=== PATIENT | female | born 1985 | race Caucasian/White ===

== ENCOUNTER 2016-12-08 08:55 | Day surgery (SDC) | payer OTHER ==
[2016-11-23 08:25] VITALS: BMI 58.1
[2016-12-08] MEDS ORDERED: INDOCYANINE GREEN 25 MG/10 ML VIAL IVPUSH ONE (10:10)
[2016-12-08] MEDS ORDERED: BUPIVACAINE HCL/PF 0.5% (5MG/ML) 10 ML VIAL ONE (11:13)
--- NOTE | 2016-12-08 11:16 | HP ---
History & Physical Update - History History: No Change - Physical Physical: No Change - Assessment Assessment: No Change - Plan Plan: No Change (Medical clearance in chart)
[2016-12-08] MEDS ORDERED: HEPARIN NA (PORCINE) 5,000 UNITS/ML 1ML VIAL SQ ONE (11:18)
[2016-12-08] MEDS ORDERED: CLINDAMYCIN PHOSPHATE 600 MG/4 ML VIAL ONE (11:28)
[2016-12-08] MEDS ORDERED: ROCURONIUM BROMIDE 50 MG/5 ML VIAL ONE ×2 (11:28→12:41)
[2016-12-08] MEDS ORDERED: PROPOFOL 20 ML ONE (11:28)
[2016-12-08] MEDS ORDERED: DEXAMETHASONE SOD PHOSPHATE 4 MG/1 ML VIAL ONE (11:28)
[2016-12-08] MEDS ORDERED: MIDAZOLAM HCL 2 MG/2 ML SINGLE DOSE VIAL ONE ×2 (11:29)
[2016-12-08] MEDS ORDERED: HEPARIN NA (PORCINE) 5,000 UNITS/ML 1ML VIAL ONE (11:55)
[2016-12-08] MEDS ORDERED: CLINDAMYCIN PHOSPHATE 900 MG/6 ML VIAL IVPB ONE (11:57)
[2016-12-08] MEDS ORDERED: BUPIVACAINE HCL/PF 0.5% (5MG/ML) 10 ML VIAL IJ ONE ×2 (12:19)
[2016-12-08] MEDS ORDERED: HYDROmorphone HCL CARPU-JECT 1 MG/1 ML DISP.SYRIN IVPUSH PRN (13:44)
[2016-12-08] MEDS ORDERED: ONDANSETRON 4 MG/2 ML VIAL IVPUSH PRN (13:44)
[2016-12-08] MEDS ORDERED: LACTATED RINGERS SOLUTION 1,000 ML IV SCH (13:45)
[2016-12-08] MEDS ORDERED: ACETAMINOPHEN 1000 MG/100 ML VIAL (NON FORMULARY) IVPB PRN (13:46)
[2016-12-08] MEDS ORDERED: GLYCOPYRROLATE 0.2 MG/1 ML VIAL ONE (13:57)
[2016-12-08] MEDS ORDERED: NEOSTIGMINE METHYLSULFATE 0.5 MG/ML - 10 ML MDV ONE (13:57)
[2016-12-08] MEDS ORDERED: ACETAMINOPHEN INJECTION 100 ML IVPB ONE (14:43)
[2016-12-08] MEDS ORDERED: oxyCODONE HCL 5 MG TABLET PO PRN ×2 (14:45→14:46)
--- NOTE | 2016-12-08 15:03 | OP ---
Operative Note - Note: Operative Date: 12/08/16 Pre-Operative Diagnosis: Chronic cholecystitis with cholelithiasis Operation: Robotic cholecystectomy, LRONA Findings: Contracted GB with large stone and dense omental adhesions to the GB Post-Operative Diagnosis: Other (omental adhesions) Surgeon: Reid Coe Day Guard: Kat Moreno Anesthesia: General Specimens Removed: gallbladder Estimated Blood Loss (mls): 15 Operative Report Dictated: Yes
[2016-12-08] MEDS ORDERED: ONDANSETRON 4 MG/2 ML VIAL ONE (15:23)
[2016-12-08 15:27] VITALS: TEMP 97.8
[2016-12-08 17:29] VITALS: BP 129/78; PULSE 70
--- NOTE | 2016-12-08 21:47 | OP ---
DATE OF OPERATION: 12/08/2016 PROCEDURE: Robotic-assisted laparoscopic cholecystectomy and lysis of adhesions. PREOPERATIVE DIAGNOSIS: Chronic cholecystitis with cholelithiasis. POSTOPERATIVE DIAGNOSIS: Chronic cholecystitis with cholelithiasis and intraabdominal adhesions. SURGEON: Reid Coe MD LABORATORY TESTER: MARJ Baumann ANESTHESIA: General endotracheal. FINDINGS AND PROCEDURE: This is a 31-year-old female who presents with acute onset of right upper quadrant pain radiating to back more than 2 months prior and was found to have an episode of acute cholecystitis, which was treated with antibiotics and bowel rest that resolved spontaneously. An ultrasound at the time revealed a gallbladder with large stone and a normal size common duct, so patient was advised interval cholecystectomy to prevent recurrence of symptoms and complications of gallstone disease. Consent was obtained after discussing the risks, benefits and alternatives to the procedure. Patient was brought to the operating room and placed in supine position. General endotracheal anesthesia was administered. The abdomen was prepped and draped in the usual sterile fashion. Using 0.5% Marcaine, local anesthesia was administered to the proposed incision site. The peritoneal cavity was initially entered using the Veress needle technique but proved to be unsuccessful. After attempting it also at the left subcostal margin, the access was converted to Fredi technique, where a 2 cm umbilical incision was made and dissection of the fascia until the peritoneal cavity was entered. Pneumoperitoneum was established. The robotic port was inserted and clamped 2 towel clips to prevent gas leakage. At this point, the patient was placed in reverse Trendelenburg left-side down position. Two 8-mm ports were inserted to the right of the umbilicus in the same level, 8 mm away from each other. Another 8-mm port was inserted in left upper quadrant, 8 mm away from the umbilicus and 1 fingerbreadth above. The 30-degree 3D laparoscope was inserted. Using the 3D laparoscope, the target organ was set and the robotic arms were docked. The ProGrasp forceps was inserted in the right lateralmost port. The fenestrated bipolar forceps was inserted in midclavicular port and an EndoWrist hook dissector connected to monopolar cautery was inserted at the left upper quadrant port. The patient was noted to have dense omental adhesions to the gallbladder from the previous acute attack of cholecystitis. The fundus was initially grasped and retracted superiorly with some difficulty due to the intrahepatic location of the gallbladder, owing to a very large liver. The omental adhesions were then taken down using the EndoWrist hook dissector connected to monopolar cautery. The gallbladder was noted to be very contacted and fibrotic. The dissection was carried initially at the proximal gallbladder bed on each side of the gallbladder to establish the critical view of safety. The cystic duct was identified and was noted to be mildly dilated. This was isolated to about a length of 3 cm. The cystic artery was also identified and dissected and skeletonized about 3 cm length. Using the Firefly technology, the hepatobiliary tree was identified with the cystic duct visualized entering into the gallbladder. The common duct was also visualized medial to the quite long cystic duct. After it was ascertained that the anatomy was clear, the cystic duct and cystic artery were clipped with Hem-o-amy clips, leaving 2 Hem-o-amy clips at the cystic duct and cystic artery stumps. The gallbladder was then resected from its bed in antegrade fashion using the EndoWrist hook dissector connected to Bovie. The bleeding of the gallbladder bed as well as the Morison's pouch was irrigated with sterile normal saline until the return was clear. The gallbladder was placed in an Endobag via the umbilical port and extracted after enlarging the skin due to the large 2-cm stone. The instruments were removed. The robotic arms were undocked. The pneumoperitoneum was evacuated and the ports were removed. The wounds were closed with [id number] Vicryl 0 suture for the umbilical incision and subcuticular Biosyn 4-0 suture for the skin. The wound closure was reinforced with Dermabond. The patient was successfully extubated and transferred to the post-anesthesia care unit in satisfactory condition. Estimated blood loss was about 15 mL. Wound class clean-contaminated. The patient received 900 mg of clindamycin prior to the start of the procedure. Mahsa [id number] MTDD
--- NOTE | 2016-12-09 12:23 | SURG ---
Surgery Slate Handler Note Slate Handler: Kat Moreno PA-C Date of Service: 12/08/16 Diagnosis: Chronic cholecystitis with cholelithiasis Procedure: Pre-Operative Diagnosis: Operation: Robotic cholecystectomy, LORNA White was present for the entirety of the operative procedure. For further detail, please refer to operative report. Visit type - Case Type Case Type: Scheduled Admission - Emergency Emergency Visit: No - New patient This patient is new to me today: No - Critical Care Critical Care patient: No
--- NOTE | 2016-12-10 17:39 | PATH ---
Surgical Pathology Report Patient Name: HAIR LYNCH [facility]. Rec. #: [id number] /Age/Gender: 1985 (Age: 31) / F Account: [id number] Location: [facility] SURGICAL Taken: 12/08/2016 Received: 12/09/2016 Reported: 12/10/2016 Physicians: Reid Coe M.D. Specimen(s) Received GALLBLADDER Clinical History Chronic cholecystitis Final Diagnosis GALLBLADDER, CHOLECYSTECTOMY: CHRONIC CHOLECYSTITIS WITH XANTHOGRANULOMATOUS FEATURES AND CHOLELITHIASIS. Electronically Signed Bartolo Flannery M.D. Gross Description Received in formalin, labeled "gallbladder" is a 4.2 x 2.0 x 2.0 cm. gallbladder with a 0.2 cm in length portion of cystic duct attached. The outer surface is martins-colbert and varies from smooth to shaggy. The lumen contains a 2.7 cm in greatest dimension black, ovoid cholelith. There is no bile present within the lumen. The mucosa is eroded. The wall of the gallbladder ranges from 0.1-0.4 cm in thickness. Medical Appointment Scheduler sections are submitted in one cassette. 12/09/201612/09/2016
== END 2016-12-08 16:10 | disposition home or self-care (01) ==
LOC: JASU-SURG 08:55
PROVIDERS: ATTEND Surgery
PROC: 8E0W4CZ Robotic Assisted Procedure of Trunk Region, Percutaneous Endoscopic Approach (ICD-10-PCS; 2016-12-08)
PROC: 0FT44ZZ Resection of Gallbladder, Percutaneous Endoscopic Approach (ICD-10-PCS; principal; 2016-12-08 11:00)
DX: K80.10 Calculus of gallbladder with chronic cholecystitis without obstruction (principal)
CPT/HCPCS: 47562; S2900; 84703; 88304-TC; 94760; J1644

== ENCOUNTER 2021-01-29 18:44 | Emergency (ER) | payer OTHER ==
[2021-01-29 19:04] VITALS: BMI 68.2
[2021-01-29] MEDS ORDERED: SODIUM CHLORIDE 1,000 ML IV STA (20:08)
[2021-01-29] MEDS ORDERED: LORazepam 2 MG/ML SDV VIAL IVPUSH ONE (20:13)
[2021-01-29] MEDS ORDERED: ACETAMINOPHEN 1000 MG/100 ML VIAL (NON FORMULARY) IVPB ONE (20:18)
[2021-01-29] MEDS ORDERED: LORazepam 2 MG/ML SDV VIAL ONE (21:02)
[2021-01-29] MEDS ORDERED: ACETAMINOPHEN INJECTION 100 ML IVPB ONE (21:02)
[2021-01-29 21:47] LABS: BASO % 0.4 % (0-2.0); EOS % 0.4 % (0-4.5); HEMATOCRIT 38.5 % (32.4-45.2); HEMOGLOBIN 12.8 GM/dL (10.7-15.3); LYMPH % 10.9 % (8-40); MCH 27.7 pg (25.7-33.7); MCHC 33.3 g/dl (32.0-36.0); MEAN CELL VOLUME 83.2 fl (80-96); MEAN PLT VOLUME 8.3 fl (7.5-11.1); MONO % 5.8 % (3.8-10.2); NEUT % 82.5 % (42.8-82.8); PLATELET COUNT 350 K/MM3 (134-434); RBC 4.63 M/mm3 (3.60-5.2); RDW 15.2 % (11.6-15.6); WHITE BLOOD COUNT 10.8 K/mm3 (4.0-10.0)
[2021-01-29 22:05] VITALS: BP 98/58; PULSE 85; TEMP 98
[2021-01-29 22:05] LABS: POTASSIUM 4.3 mmol/L (3.5-5.1)
[2021-01-29 22:08] LABS: ALBUMIN 3.5 g/dl (3.4-5.0); CALCIUM 9.3 mg/dL (8.5-10.1)
[2021-01-29 22:11] LABS: CREATININE 0.8 mg/dL (0.55-1.3)
[2021-01-29 22:13] LABS: BILIRUBIN,TOTAL 1.2 mg/dL (0.2-1); TOT PROT 7.6 g/dl (6.4-8.2)
[2021-01-29 23:44] LABS: HCG,QUALITATIVE URINE Negative
[2021-01-29 23:46] LABS: EPI CELLS >36 /uL (0-25.1); HYALINE CASTS 1 /uL (0-3.1); URINE APPEARANCE CLOUDY; URINE BACTERIA 142 /uL (0-1359); URINE BILIRUBIN NEGATIVE (NEGATIVE); URINE COLOR YELLOW; URINE GLUCOSE (UA) NEGATIVE (NEGATIVE); URINE KETONE TRACE (NEGATIVE); URINE LEUK ESTERASE 1+ (NEGATIVE); URINE NITRITE NEGATIVE (NEGATIVE); URINE PROTEIN 1+ (NEGATIVE); URINE RBC 2998 /uL (0-23.9); URINE UROBILINOGEN 0.2 mg/dL (0.2-1.0); URINE WBC 61 /uL (0-25.8)
== END 2021-01-30 00:47 | disposition home or self-care (01) ==
LOC: JER 18:44
PROC: 3E033NZ Introduction of Analgesics, Hypnotics, Sedatives into Peripheral Vein, Percutaneous Approach (ICD-10-PCS; principal; 2021-01-29)
PROC: 3E033GC Introduction of Other Therapeutic Substance into Peripheral Vein, Percutaneous Approach (ICD-10-PCS; 2021-01-29)
PROC: 3E0337Z Introduction of Electrolytic and Water Balance Substance into Peripheral Vein, Percutaneous Approach (ICD-10-PCS; 2021-01-29)
DX: R56.9 Unspecified convulsions (principal); N39.0 Urinary tract infection, site not specified
CPT/HCPCS: 36415; 71045-TC-FY; 80053; 80177; 81003; 82550; 84703; 85025; 93005; 93010; 99285-25; J0131

== ENCOUNTER 2021-11-12 15:12 | Inpatient (IN) | payer OTHER ==
[2021-11-12 15:57] VITALS: BMI 61.4
[2021-11-12] MEDS ORDERED: levETIRAcetam 500 MG TABLET (FP) PO ONE ×2 (16:47→17:01)
[2021-11-12 19:58] LABS: HCG,QUALITATIVE URINE Negative
[2021-11-12 20:14] LABS: BASO % 0.5 % (0-2.0); EOS % 0.3 % (0-4.5); HEMATOCRIT 34.4 % (32.4-45.2); HEMOGLOBIN 11.4 GM/dL (10.7-15.3); LYMPH % 20.1 % (8-40); MCH 27.1 pg (25.7-33.7); MCHC 33.3 g/dl (32.0-36.0); MEAN CELL VOLUME 81.2 fl (80-96); MONO % 4.9 % (3.8-10.2); NEUT % 74.2 % (42.8-82.8); PLATELET COUNT 341 10^3/uL (134-434); RBC 4.23 M/mm3 (3.60-5.2); WHITE BLOOD COUNT 12.2 K/mm3 (4.0-10.0)
[2021-11-12 20:33] LABS: CALCIUM 8.5 mg/dL (8.5-10.1)
[2021-11-12 20:34] LABS: BLOOD UREA NITROGEN 10.5 mg/dL (7-18)
[2021-11-12 20:37] LABS: CREATININE 0.9 mg/dL (0.55-1.3)
[2021-11-12 20:39] LABS: BILIRUBIN,TOTAL 0.6 mg/dL (0.2-1); TOT PROT 6.4 g/dl (6.4-8.2)
[2021-11-12 22:58] LABS: EPI CELLS 33 /uL (0-25.1); HYALINE CASTS 4 /uL (0-3.1); PH,URINE 6.5 (5.0-8.0); URINE APPEARANCE CLOUDY; URINE BACTERIA 4474 /uL (0-1359); URINE BILIRUBIN NEGATIVE (NEGATIVE); URINE COLOR YELLOW; URINE GLUCOSE (UA) NEGATIVE (NEGATIVE); URINE KETONE TRACE (NEGATIVE); URINE LEUK ESTERASE 2+ (NEGATIVE); URINE NITRITE NEGATIVE (NEGATIVE); URINE PROTEIN NEGATIVE (NEGATIVE); URINE RBC 17 /uL (0-23.9); URINE WBC 188 /uL (0-25.8)
[2021-11-13] MEDS ORDERED: ENOXAPARIN NA (PORCINE) 40 MG/0.4 ML DISP.SYRIN SQ ONE ×2 (00:17→09:48)
[2021-11-13] MEDS: ENOXAPARIN NA (PORCINE) 40 MG/0.4 ML DISP.SYRIN SQ SCH ×2 (00:25→09:59)
[2021-11-13 08:40] VITALS: BP 128/85; PULSE 109; TEMP 99.2
[2021-11-13] MEDS ORDERED: levETIRAcetam 500 MG TABLET (FP) PO ONE (09:48)
[2021-11-13] MEDS ORDERED: PANTOPRAZOLE 40 MG TABLET ONE (09:48)
[2021-11-13] MEDS ORDERED: AZTREONAM 0.5 GM in DEXTROSE 5%-WATER - 50 ML IVPB SCH (10:00)
[2021-11-13] MEDS ORDERED: AZTREONAM 1 GM VIAL (RESTRICTED TO ID) IVPB SCH (10:00)
[2021-11-13] MEDS ORDERED: PANTOPRAZOLE 40 MG TABLET PO SCH (10:00)
[2021-11-13] MEDS ORDERED: levETIRAcetam 500 MG TABLET (FP) PO SCH (10:00)
[2021-11-13] MEDS ORDERED: LURASIDONE HCL 20 MG TABLET PO SCH (10:00)
[2021-11-13] MEDS ORDERED: NICOTINE 14 MG/24 HOURS TOPICAL PATCH TD SCH (10:00)
[2021-11-13] MEDS ORDERED: LURASIDONE HCL 40 MG TABLET PO SCH (22:00)
[2021-11-14] MEDS ORDERED: AZTREONAM 0.5 GM in DEXTROSE 5%-WATER - 50 ML IVPB SCH (10:00)
== END 2021-11-13 17:00 | disposition left against medical advice (07) | DRG 101 ==
LOC: JER 15:12 → JERBED 18:29
PROVIDERS: ADMIT Internal Medicine
DX: G40.909 Epilepsy, unspecified, not intractable, without status epilepticus (principal); Z68.44 Body mass index [BMI] 60.0-69.9, adult; N39.0 Urinary tract infection, site not specified; F31.9 Bipolar disorder, unspecified; K21.9 Gastro-esophageal reflux disease without esophagitis; Z53.29 Procedure and treatment not carried out because of patient's decision for other reasons; F41.9 Anxiety disorder, unspecified; E66.01 Morbid (severe) obesity due to excess calories
CPT/HCPCS: 36415; 80053; 80177; 81003; 82962; 84703; 85025; 93005; 93010; 99285-25; C9803; U0003; U0005